=== PATIENT | female | born 2000 | race Caucasian/White ===

== ENCOUNTER 2023-11-20 03:07 | Emergency (ER) | payer OTHER ==
[~2023-11-20] VITALS: Ht 160 cm; Wt 72.7 kg
[2023-11-20] MEDS: LORazepam 2 MG/ML 1ML VIAL IV STA (04:11)
[2023-11-20] MEDS: BOOSTRIX VACCINE (TETANUS/DIPHTH/ACEL. PERTUSSIS) 0.5ML SYR IM ONE (04:15)
[2023-11-20 05:59] VITALS: BP 116/68; TEMP 97.7; O2SAT 96
== END 2023-11-20 06:01 | disposition home or self-care (01) ==
LOC: M ED 03:07
DX: S01.01XA Laceration without foreign body of scalp, initial encounter (principal); W06.XXXA Fall from bed, initial encounter; Y92.59 Other trade areas as the place of occurrence of the external cause; Y93.9 Activity, unspecified; Y99.9 Unspecified external cause status; F41.1 Generalized anxiety disorder; F10.10 Alcohol abuse, uncomplicated
CPT/HCPCS: 12001; 70450; 72125; 90715; 96374; 99284; J2060